=== PATIENT | female | born 1950 | race Caucasian/White ===

== ENCOUNTER 2019-03-17 00:45 | Outpatient (CLI) | payer OTHER, SELFPAY ==
--- NOTE | 2019-03-17 14:15 | MERGE_ITS ---
*[facility]* *[facility]* [address] [facility] [place] [address] Date of study: 03/17/2019 Transthoracic Echocardiography M-mode, complete 2D, complete spectral Doppler, and color Doppler *STUDY CONCLUSIONS* Summary: 1. Left ventricle: The cavity size was normal. There was mild concentric hypertrophy. Systolic function was normal. The estimated ejection fraction was 60-65%. Wall motion was normal; there were no regional wall motion abnormalities. 2. Aortic valve: There was moderate stenosis. There was mild to moderate regurgitation. Peak velocity (S): 3m/sec. Mean gradient (S): 22.7mm Hg. Valve area (VTI): 1.1cm^2. 3. Right ventricle: The cavity size was normal. Wall thickness was normal. Systolic function was normal. *PATIENT PRESENTATION* Height: 162.6cm (64in ) S/D Pressure: 122 / 58 Weight: 106.6kg (234.5lb ) BSA: 2.25m^2 Test start time: 02:15 PM. Test stop time: 03:10 PM. 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 This study was interpreted by [facility]. Pertinent images and digital data are archived for permanent storage and are available for subsequent review. No prior study was available for comparison. Study status: Routine. Transthoracic echocardiography. M-mode, complete 2D, complete spectral Doppler, and color Doppler. A Transthoracic Echocardiogram was performed. Scanning was performed from the parasternal, apical, subcostal, and suprasternal notch acoustic windows. Images were obtained using an [id number] cardiac ultrasound machine. Image quality was adequate. Study completion: The patient tolerated the procedure well. There were no complications. History: PMH: Systolic cardiac murmur r01.1. *CARDIAC ANATOMY* Left ventricle: The cavity size was normal. There was mild concentric hypertrophy. Systolic function was normal. The estimated ejection fraction was 60-65%. Wall motion was normal; there were no regional wall motion abnormalities. Diastolic parameters were normal for age. Aortic valve: Probably trileaflet; moderately calcified leaflets. Valve mobility was restricted. Doppler: There was moderate stenosis. There was mild to moderate regurgitation. VTI ratio of LVOT to aortic valve: 0.39. Valve area (VTI): 1.1cm^2. Indexed valve area (VTI): 0.5cm^2/m^2. Peak velocity ratio of LVOT to aortic valve: 0.38. Valve area (Vmax): 1.1cm^2. Indexed valve area (Vmax): 0.5cm^2/m^2. Mean velocity ratio of LVOT to aortic valve: 0.37. Valve area (Vmean): 1.1cm^2. Indexed valve area (Vmean): 0.5cm^2/m^2. Mean gradient (S): 22.7mm Hg. Peak gradient (S): 36.6mm Hg. Aorta: Aortic root: The aortic root was normal in size. Ascending aorta: The ascending aorta was normal in size. Mitral valve: Structurally normal valve. Mobility was not restricted. Doppler: Transvalvular velocity was within the normal range. There was no evidence for stenosis. There was trivial regurgitation. Valve area by pressure half-time: 2.5cm^2. Indexed valve area by pressure half-time: 1.1cm^2/m^2. Peak gradient (D): 3.3mm Hg. Left atrium: The atrium was normal in size. Right ventricle: The cavity size was normal. Wall thickness was normal. Systolic function was normal. Pulmonic valve: Doppler: Peak gradient (S): 3mm Hg. Tricuspid valve: Structurally normal valve. Doppler: Transvalvular velocity was within the normal range. There was no evidence for stenosis. There was trivial regurgitation. Pulmonary artery: Pulmonary systolic pressure was in the range of 30mm Hg to 35mm Hg. Right atrium: The atrium was normal in size. Pericardium: There was no pericardial effusion. Systemic veins: Inferior vena cava: Well visualized. The vessel was patent and normal in size. The respirophasic diameter changes were in the normal range (greater than or equal to 50%). Baseline ECG: Normal sinus rhythm. Measurements Left ventricle Value Reference LV ID, ED, PLAX 5.0 cm 3.5 - 6.0 LV ID, ES, PLAX 3.1 cm 2.1 - 4.0 LV PW thickness, ED, PLAX 1.2 cm LV end-diastolic volume, 1-p A2C 101 ml LV ejection fraction, 1-p A2C 70 % LV end-diastolic volume, 1-p A4C 111 ml LV ejection fraction, 1-p A4C 58 % LV e', lateral 0.085 m/sec LV E/e', lateral 11 LV e', medial 0.077 m/sec LV E/e', medial 12 LV e', average 0.081 m/sec LV E/e', average 11 Ventricular septum Value Reference IVS thickness, ED, PLAX 1.2 cm LVOT Value Reference LVOT ID, A-P 1.9 cm LVOT area 2.9 cm^2 LVOT peak velocity, S 1.16 m/sec LVOT mean velocity, S 0.85 m/sec LVOT VTI, S 27.6 cm LVOT peak gradient, S 5.4 mm Hg LVOT mean gradient, S 3.3 mm Hg Stroke volume (SV), LVOT DP 79 ml Stroke index (SV/bsa), LVOT DP 35 ml/m^2 Aortic valve Value Reference Aortic valve peak velocity, S 3 m/sec Aortic valve mean velocity, S 2.3 m/sec Aortic valve VTI, S 71.0 cm Aortic mean gradient, S 22.7 mm Hg Aortic peak gradient, S 36.6 mm Hg VTI ratio, LVOT/AV 0.39 Aortic valve area, VTI 1.1 cm^2 Velocity ratio, peak, LVOT/AV 0.38 Aortic valve area, peak velocity 1.1 cm^2 Velocity ratio, mean, LVOT/AV 0.37 Aortic valve area, mean velocity 1.1 cm^2 Aortic valve area/bsa, mean velocity 0.5 cm^2/m^2 Aortic regurg deceleration 268 cm/s^2 Aortic regurg pressure half-time 445 ms Aorta Value Reference Aortic root ID, ED 3.3 cm Ascending aorta ID, A-P, S 3.5 cm Left atrium Value Reference LA ID, A-P, ES 3.8 cm LA ID/bsa, A-P 1.7 cm/m^2 <=2.2 LA volume/bsa, ES, 1-p A4C 19 ml/m^2 LA volume, ES, 2-p 53 ml LA volume/bsa, ES, 2-p 23 ml/m^2 LA/aortic root ratio 1.13 Mitral valve Value Reference Mitral E-wave peak velocity 0.9 m/sec Mitral A-wave peak velocity 0.81 m/sec Mitral deceleration time (H) 309 ms 150 - 230 Mitral pressure half-time 90 ms Mitral peak gradient, D 3.3 mm Hg Mitral E/A ratio, peak 1.12 Mitral valve area, PHT, DP 2.5 cm^2 Pulmonary veins Value Reference Pulmonary vein peak velocity, S 0.51 m/sec Pulmonary vein peak velocity, D 0.49 m/sec Pulmonary vein velocity ratio, peak, 1.03 S/D Pulmonary vein A-wave reversal peak 0.35 m/sec velocity Pulmonary vein A-wave reversal 105 ms duration Tricuspid valve Value Reference Tricuspid regurg peak velocity 2.7 m/sec Tricuspid peak RV-RA gradient 28.2 mm Hg Right atrium Value Reference RA area, ES, A4C 13.7 cm^2 8.3 - 19.5 Pulmonic valve Value Reference Pulmonic peak gradient, S 3 mm Hg Legend: (L) and (H) clarke values outside specified reference range. I have personally reviewed the images and have reviewed and edited the reported findings. Electronically signed by Petar Solorzano 03/17/2019 15:57
== END 2019-03-17 01:05 ==
PROVIDERS: PCP Family Medicine; Visit Provider Family Medicine
DX: R01.1 Cardiac murmur, unspecified (principal); I35.2 Nonrheumatic aortic (valve) stenosis with insufficiency
CPT/HCPCS: 93306

== ENCOUNTER 2021-04-26 20:22 | Outpatient (REF) | payer OTHER, SELFPAY ==
[2021-04-26 19:45] LABS: HGB 13.5 g/dL (11.2-15.7)
[2021-04-26 20:44] LABS: Hemoglobin A1C 5.5 % (<5.7)
[2021-04-26 20:49] LABS: Anion Gap 7.1 mmol/L (3-11); BUN 16 mg/dL (7-18); CO2 29.9 mmol/L (21.0-32.0); CREATININE 1.1 mg/dL (0.55-1.02); Calcium 8.9 mg/dL (8.5-10.1); Chloride 104 mmol/L (98-107); Estimated GFR 48.96 (mL/min/1.73m2); Glucose 82 mg/dL (74-106); Potassium 3.9 mmol/L (3.5-5.1); Sodium 141 mmol/L (136-145); TSH (W/Ref FT4) 0.91 uIU/mL (0.36-3.74)
[2021-04-26 21:03] LABS: Vitamin D 25 Total 13.1 ng/mL (30-100)
[2021-04-30 10:49] LABS: Hepatitis C Ab w Rflx HCV PCR Negative (Negative)
== END 2021-04-26 20:23 | disposition home or self-care (01) ==
LOC: NCHCN 20:22
PROVIDERS: PCP Family Medicine; Visit Provider Family Medicine
DX: R53.83 Other fatigue (principal); F32.9 Major depressive disorder, single episode, unspecified; I10 Essential (primary) hypertension; Z11.59 Encounter for screening for other viral diseases; E55.9 Vitamin D deficiency, unspecified; R79.89 Other specified abnormal findings of blood chemistry
CPT/HCPCS: 80048; 82306; 86803; 83036; 84443; 85014; 85018

== ENCOUNTER 2021-08-08 09:33 | Outpatient (REF) | payer MEDICARE, SELFPAY ==
[2021-08-08 13:46] LABS: BUN 19 mg/dL (7-18); CREATININE 1.1 mg/dL (0.55-1.02); Calcium 8.7 mg/dL (8.5-10.1); Chloride 103 mmol/L (98-107); Estimated GFR 48.96 (mL/min/1.73m2); Glucose 89 mg/dL (74-106); Sodium 139 mmol/L (136-145)
[2021-08-09 05:28] LABS: Vitamin D 25 Total 25.6 ng/mL (30-100)
== END 2021-08-08 09:34 | disposition home or self-care (01) ==
LOC: NCHCN 09:33
PROVIDERS: PCP Family Medicine; Visit Provider Family Medicine
DX: E55.9 Vitamin D deficiency, unspecified (principal); N28.9 Disorder of kidney and ureter, unspecified
CPT/HCPCS: 80048; 82306

== ENCOUNTER 2022-01-10 11:43 | Outpatient (REF) | payer MEDICARE, SELFPAY ==
[2022-01-10 15:30] LABS: Anion Gap 7.4 mmol/L (3-11); BUN 19 mg/dL (7-18); CO2 28.6 mmol/L (21.0-32.0); Calcium 8.8 mg/dL (8.5-10.1); Chloride 104 mmol/L (98-107); Estimated GFR 54.66 (mL/min/1.73m2); Glucose 73 mg/dL (74-106); Potassium 3.5 mmol/L (3.5-5.1); Sodium 140 mmol/L (136-145)
== END 2022-01-10 11:44 | disposition home or self-care (01) ==
LOC: NCHCN 11:43
PROVIDERS: PCP Family Medicine; Visit Provider Family Medicine
DX: I10 Essential (primary) hypertension (principal); N28.9 Disorder of kidney and ureter, unspecified
CPT/HCPCS: 80048

== ENCOUNTER 2022-11-01 00:05 | Outpatient (CLI) | payer MEDICARE, SELFPAY ==
--- NOTE | 2022-11-01 | DI.DEXA_ITS ---
Exam(s) XR DEXA BONE DENSITY W/WO MANDO EXAM: XR DEXA BONE DENSITY W/WO MANDO CLINICAL HISTORY: PREVENTATIVE CARE, Z00.00, POSTMENOPAUSAL STATE, Z78.0 TECHNIQUE: COMPARISON: No exams were available for comparison FINDINGS: Lateral Spine Image: Unremarkable. No compression deformities identified. Left hip: Total T-Score: -0.4 Total Z-Score: 1.2 T- and Z-scores: Within normal limits. There is a T-score of -2.5 in the femoral neck consistent with osteoporosis. Lumbar Spine: Total T-Score: 0.5 Total Z-Score: 2.8 T- and Z-scores: Within normal limits. IMPRESSION: Osteoporosis in the left femoral neck.
== END 2022-11-01 00:25 ==
LOC: DI 00:05
PROVIDERS: PCP Family Medicine; Visit Provider Family Medicine
DX: M81.0 Age-related osteoporosis without current pathological fracture (principal); Z78.0 Asymptomatic menopausal state
CPT/HCPCS: 77080

== ENCOUNTER 2022-11-12 01:29 | Outpatient (CLI) | payer MEDICARE, SELFPAY ==
--- NOTE | 2022-11-12 11:45 | DI.MAMMO_ITS ---
Exam(s) MAMMO SCREENING EXAM: MAMMO SCREENING CLINICAL HISTORY: SCREENING FOR BREAST CANCER Z12.31, [facility] Z00.00 TECHNIQUE: Bilateral full field digital CC and MLO mammographic images were obtained with 3D tomosyn thesis and utilizing computer aided detection (CAD). COMPARISON: Available for comparison. FINDINGS: Masses/Architectural Distortion: None seen. Microcalcifications: No suspicious pleomorphic-type are seen. Skin Thickening/Nipple Retraction: None. IMPRESSION: 1. No significant interval change with no specific features of malignancy noted. 2. Unless there is more urgent need, screening mammography is recommended, as per [employer] guidelines. BI-RADS Category 1 - Negative Breast Density - Category B - Scattered areas of fibroglandular density Breast density category C or D implies that the patient has dense breast tissue. Dense breast tissue is very common and is not abnormal but dense breast tissue can make it harder to find cancer on a ma mmogram. Also, dense breast tissue may increase their breast cancer risk. This information about the result of the mammogram report was provided to the patient to raise their awareness. Use this report when you speak with the patient about their risks for breast cancer, which includes their family hist ory. At that time, you may recommend for more screening tests (Ultrasound or MRI) as they might be us eful based on their risk. A negative radiographic report should not delay biopsy if a dominant or clinically suspicious mass is present. Up to ten percent of cancers are not identified on mammography. A negative report may reinforce clinical impression. Adenosis and dense breasts may obscure an underlying neoplasm. False positive reports average 6 to 10%. Patient will receive a letter notifying them of these results.
== END 2022-11-12 01:49 ==
LOC: DI 01:29
PROVIDERS: PCP Family Medicine; Visit Provider Family Medicine
DX: Z12.31 Encounter for screening mammogram for malignant neoplasm of breast (principal)
CPT/HCPCS: 77063; 77067

== ENCOUNTER 2022-11-13 02:12 | Outpatient (CLI) | payer MEDICARE, SELFPAY ==
[2022-11-13 11:33] LABS: Calculated LDL 108 mg/dL (<100); Cholesterol 193 mg/dL (<200); HDL Cholesterol 67 mg/dL (40-60); Triglyceride 92 mg/dL (<150)
[2022-11-13 11:52] LABS: FREE T4 0.94 ng/dL (0.76-1.46)
[2022-11-13 18:07] LABS: T3,Free 3.5 pg/mL (2.8-5.3)
== END 2022-11-13 02:13 | disposition home or self-care (01) ==
LOC: LBO 02:12
PROVIDERS: PCP Family Medicine; Visit Provider Family Medicine
DX: L65.9 Nonscarring hair loss, unspecified (principal); I10 Essential (primary) hypertension
CPT/HCPCS: 36415; 80061; 84439; 84481

== ENCOUNTER → 2024-03-22 02:13 | Outpatient (CLI) | payer MEDICARE, SELFPAY ==
--- NOTE | 2024-03-22 | DI.RAD_ITS ---
Exam(s) XR KNEE RT 3V AP,LAT,ZONIA EXAM: XR KNEE RT 3V AP,LAT,ZONIA CLINICAL HISTORY: Pain in rt knee, M25.561. TECHNIQUE: 2D digital imaging was performed. COMPARISON: No exams were available for comparison FINDINGS: Four views No evidence of fracture or joint effusion. However, there is [id number] narrowing of the lateral c ompartment as seen on the weight-bearing view as well as marginal osteophytes of the lateral compartm ent. The medial compartment exhibits normal height. Significant degenerative changes are also evide nt in the patellofemoral compartment. 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 Also significant degenerative change in the patellofemoral compartment. No obvious joint effusion. DATA REPOSITORY: RADIATION DOSE DELIVERED:
== END ==
PROVIDERS: PCP Family Medicine; Visit Provider Family Medicine
DX: M25.561 Pain in right knee (principal); M17.11 Unilateral primary osteoarthritis, right knee
CPT/HCPCS: 73562

== ENCOUNTER 2024-04-07 00:55 | Outpatient (CLI) | payer MEDICARE, SELFPAY | END 2024-04-07 01:15 | LOC: DI 00:55 | PROVIDERS: PCP Family Medicine; Visit Provider Family Medicine | DX: I35.0 Nonrheumatic aortic (valve) stenosis (principal) | CPT/HCPCS: 93306 ==

== ENCOUNTER → 2024-05-31 10:03 | Outpatient (BNVA) | payer MEDICARE, SELFPAY | PROVIDERS: PCP Family Medicine; Referring Provider Family Medicine; Visit Provider Physician Assistant | DX: M17.11 Unilateral primary osteoarthritis, right knee (principal) | CPT/HCPCS: 20610; J1010 ==

== ENCOUNTER → 2024-09-23 13:47 | Outpatient (BNVA) | payer MEDICARE, SELFPAY | PROVIDERS: PCP Family Medicine; Referring Provider Family Medicine | DX: M17.11 Unilateral primary osteoarthritis, right knee (principal) | CPT/HCPCS: 20610; 99213; J1010 ==